=== PATIENT | female | born 1940 | race Caucasian/White ===

== ENCOUNTER 2019-06-15 13:23 | Emergency (ER) | payer MEDICARE, OTHER ==
[2019-06-15 13:36] VITALS: BP 169/64
--- NOTE | 2019-06-15 13:48 | ED Physician Documentation ---
History of Present Illness - Stated complaint Stated Complaint: FOREIGN BDY/L EAR - Chief complaint Chief Complaint: General - History obtained from History obtained from: Patient - History of Present Illness Timing: Last night Pain level max: 2 Pain level now: 1 - Additonal information Additional information: part of hearing aid stuck in L ear. Review of Systems Ears: denies: Loss of hearing PD PAST MEDICAL HISTORY - Past Medical History Past Medical History: No - Allergies Allergies/Adverse Reactions: Allergies Allergy/AdvReac Type Severity Reaction Status Date / Time morphine Allergy Nausea Verified 06/15/19 13:36 - Living Situation Living Arrangement: reports: At home PD ED PE NORMAL - Vitals Vital signs reviewed: Yes - General General: Alert and oriented X 3, No acute distress - HEENT HEENT: Other (Left ear canal, small plastic foreign body) - Neuro Neuro: Alert and oriented X 3 Results - Vitals Vitals: Oxygen O2 Source Room air Procedures - FB removal FB location: Ear Removal method: Foreceps FB removal aftercare: No complications, Patient tolerated well, Removed successfully PD MEDICAL DECISION MAKING - ED course Complexity details: considered differential, d/w patient ED course: Ear piece of hearing aid removed from the ear. Tolerated well. No perforation. No residual foreign body. Patient counseled regarding signs and symptoms for which I believe and urgent re-evaluation would be necessary. Patient with good understanding of and agreement to plan and is comfortable going home at this time This document was made in part using voice recognition software. While efforts are made to proofread this document, sound alike and grammatical errors may occur. Departure - Departure Disposition: 01 Home, Self Care Clinical Impression: Ear foreign body Qualifiers: Encounter type: initial encounter Laterality: left Qualified Code(s): T16.2XXA - Foreign body in left ear, initial encounter Condition: Good Instructions: ED Foreign Body Ear Canal Follow-Up: your,doctor as needed [Other] Comments: Return if you worsen. the foreign body was removed today. Discharge Date/Time: 06/15/19 13:52
== END 2019-06-15 13:52 | disposition home or self-care (01) ==
LOC: ED 13:23
DX: T16.2XXA Foreign body in left ear, initial encounter (principal); X58.XXXA Exposure to other specified factors, initial encounter
CPT/HCPCS: 69200; 99282